=== PATIENT | male | born 1960 | race Caucasian/White ===

== ENCOUNTER 2023-03-25 15:14 | Emergency (ER) | payer OTHER, SELFPAY ==
[2023-03-25 15:17] VITALS: BP 172/100; PULSE 57; RESP 20; TEMP 36.5; O2SAT 99; BMI 28.9
[2023-03-25 15:29] VITALS: PULSE 58; RESP 20; O2SAT 98
--- NOTE | 2023-03-25 15:36 | XR_ITS ---
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 Chronic mild superior endplate compression deformity of the L3 vertebral body. Mild degenerative endplate change is seen throughout the lumbar spine. Vascular calcifications. XR/XR lumbar spine 2-3V IMPRESSION: No acute findings Electronically authenticated by: DARREL KELLEY Date: 03/25/2023 16:25
--- NOTE | 2023-03-25 15:37 | ED.BACK1 ---
HPI - Back Pain/Injury General Chief Complaint: Back Pain/Injury Stated Complaint: BACK PAIN Time Seen by Provider: 03/25/23 15:23 Source: patient Mode of arrival: walk-in Limitations: no limitations History of Present Illness HPI Narrative: patient is a 62-year-old male who presents to the emergency department for the evaluation of low back pain for the last two weeks. He has not been seen by anyone for this, he states he is a and is too difficult for him to drive to his [place] doctor. He denies any new falls or injuries. He has a history of chronic low back pain after vertebral fractures many years ago. He states his [place] doctor has not refilled his muscle relaxants and approximately six months and he thinks this is contributing. He denies any new peripheral paresthesias, muscle weakness, urinary or stool incontinence. He is able to ambulate although he states he has pain with doing so. No medications prior to arrival Related Data Previous Rx's Medication Instructions Recorded methocarbamol 750 mg tablet 750 mg PO TID PRN pain #20 tabs 03/25/23 naproxen sodium 550 mg tablet 550 mg PO BID PRN pain #10 tabs 03/25/23 tramadol 50 mg tablet 50 mg PO Q4H PRN pain 3 days #15 03/25/23 tabs Allergies Allergy/AdvReac Type Severity Reaction Status Date / Time No Known Drug Allergies Allergy Verified 03/25/23 15:20 Review of Systems ROS Constitutional Denies: fever or chills Eyes Denies: change in vision Ears, nose, mouth, and throat Denies: throat pain Cardiovascular Denies: chest pain Respiratory Denies: shortness of breath Gastrointestinal Denies: abdominal pain, nausea or vomiting Musculoskeletal Reports: back pain; Denies: neck pain or extremity pain Integumentary/Breast Denies: rash Neurological Denies: headache Endocrine Denies: excessive urination Hematologic/Lymphatic Denies: easy bruising or easy bleeding PFSH PFSH Social History Smoking status: Heavy tobacco smoker Exam Narrative Exam Narrative: Gen.: Awake, alert, in no distress Head: Normocephalic, atraumatic ENT: Moist mucous membranes Respiratory: No respiratory distress Back: no bony point tenderness of the T-spine or L-spine with diffuse tenderness of the lumbar spine. No obvious deformity or step-off. Extremities: Moves extremities equally, normal dorsiflexion and plantarflexion of the lower extremities with no decrease in sensation to the medial thighs. Psych: Normal mood and affect Neuro: No focal neuro deficit Skin: Warm, dry, intact Constitutional Vital Signs, click to edit/add: Last Vital Signs Temp 97.7 F 03/25/23 15:17 Pulse 58 L 03/25/23 15:29 Resp 20 03/25/23 15:29 BP 172/100 H 03/25/23 15:17 Pulse Ox 98 03/25/23 15:29 Course Vital Signs Vital signs: Vital Signs Temperature 97.7 F 03/25/23 15:17 Pulse Rate 57 L 03/25/23 15:17 Respiratory Rate 20 03/25/23 15:17 Blood Pressure 172/100 H 03/25/23 15:17 Pulse Oximetry 99 03/25/23 15:17 Temperature 97.7 F 03/25/23 15:17 Pulse Rate 58 L 03/25/23 15:29 Respiratory Rate 20 03/25/23 15:29 Blood Pressure 172/100 H 03/25/23 15:17 Pulse Oximetry 98 03/25/23 15:29 MDM - Back Pain/Injury MDM Narrative Medical decision making narrative: Patient treated for symptoms in the ER, no focal neurodeficit. X-rays of the lumbar spine with degenerative changes, no evidence of acute process. He is treated for pain for home with short course of analgesics, muscle relaxants and NSAIDs. Follow-up PCP and return to the ER if symptoms change or worsen. Medical Records Attestation: I reviewed the patient's medical records. Lab Data Attestation: I reviewed the patient's lab results. Imaging Data XR lumbar spine: Attestation: I have reviewed the pertinent imaging results. 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 Chronic mild superior endplate compression deformity of the L3 vertebral body. Mild degenerative endplate change is seen throughout the lumbar spine. Vascular calcifications. IMPRESSION: No acute findings Discharge Plan Discharge Chief Complaint: Back Pain/Injury Clinical Impression: Low back pain Patient Disposition: Home, Self-Care Time of Disposition Decision: 16:34 Condition: Good Prescriptions / Home Meds: New tramadol 50 mg tablet 50 mg PO Q4H PRN (Reason: pain) 3 Days Qty: 15 0RF Rx Instructions: DX: M54.5 methocarbamol 750 mg tablet 750 mg PO TID PRN (Reason: pain) Qty: 20 0RF naproxen sodium 550 mg tablet 550 mg PO BID PRN (Reason: pain) Qty: 10 0RF Instructions: Acute Low Back Pain (ED), Degenerative Disc Disease (ED) Stand Alone Forms: Portal Instructions Referrals: Physician,Non-Staff, MD [Primary Care Provider] - 1 week
[2023-03-25] MEDS: HYDROCODONE/ACET 5-325 MG TABLET 1 TAB PO (15:54)
[2023-03-25] MEDS: KETOROLAC TROMETHAMINE 30 MG/ML VIAL IM (15:55)
[2023-03-25] MEDS: ORPHENADRINE 60 MG/ 2 ML VIAL IM (15:55)
[2023-03-25 16:35] VITALS: BP 140/80
== END 2023-03-25 16:46 | disposition home or self-care (01) ==
PROVIDERS: Emergency Provider Emergency Medicine Emergency Medical Services
DX: M54.50 Low back pain, unspecified (principal); F17.200 Nicotine dependence, unspecified, uncomplicated; G89.29 Other chronic pain; I63.81 Other cerebral infarction due to occlusion or stenosis of small artery
CPT/HCPCS: 36415; 72100; 80061; 83036; 96372; 99284; J1885; J2360

== ENCOUNTER 2023-03-25 16:45 | Outpatient (OUT) | payer OTHER, SELFPAY ==
[2023-03-25 17:31] LABS: Estimated Average Glucose 105 mg/dL; Glycohemoglobin A1C 5.3 % (4.5-6.2)
[2023-03-25 17:53] LABS: Chol HDL Ratio 3.6; Cholesterol 185 mg/dL (<=200); HDL Cholesterol 52 mg/dL (40-60); LDL Cholesterol Calculated 105.6 mg/dL; Triglycerides 137 mg/dL (<=150); VLDL CHOLESTEROL 27.4 mg/dL
== END 2023-03-25 16:46 | disposition home or self-care (01) ==
DX: I63.81 Other cerebral infarction due to occlusion or stenosis of small artery (principal)
CPT/HCPCS: 36415; 80061; 83036